=== PATIENT | female | born 1995 | race Caucasian/White ===

== ENCOUNTER 2017-02-21 02:42 | Emergency (ER) | payer BC ==
[2017-02-21] MEDS ORDERED: Morphine INJ* 4 MG/ML 1 ML CARPUJECT IV ONE (03:11)
[2017-02-21] MEDS ORDERED: HYDROmorphone INJ* 2 MG/ML CARPUJECT SYRINGE IV SLOW PU ONE ×2 (05:04→05:54)
--- NOTE | 2017-02-21 08:00 | ED ---
Anali Romero Alfonso, scribed for Dewayne Anaya MD on 02/21/17 at 0308 . Upper Extremity Pain - HPI Summary HPI Summary: This patient is a 22 year old F BIBA to [facility] accompanied by male friend with a chief complaint of right elbow pain since a fall at 0145. She states I fell down 7 stairs. The patient rates the aching pain 8/10 in severity. Symptoms aggravated by movement and palpation. Symptoms alleviated by nothing. Patient reports ETOH use tonight. Patient denies right shoulder pain, RUE numbness, head trauma, and LOC. She is right hand dominant. - History of Current Complaint Chief Complaint: EDExtremityUpper Stated Complaint: RIGHT ARM PAIN Hx Obtained From: Patient Mechanism Of Injury: Fall From Height Of: - 7 stairs Onset/Duration: Started Hours Ago, Traumatic, Still Present Timing: Constant, Lasting Hours Severity Currently: Severe - 8/10 severity Pain Location: Elbow - R Character: Aching Aggravating Factor(s): Movement, Other - Palpation Alleviating Factor(s): Nothing Associated Signs & Symptoms: Positive: Other - Patient denies right shoulder pain, RUE numbness, head trauma, and LOC. Related History: Dominant Hand Right - Allergies/Home Medications Allergies/Adverse Reactions: Allergies Allergy/AdvReac Type Severity Reaction Status Date / Time No Known Allergies Allergy Verified 02/21/17 02:47 PMH/Surg Hx/FS Hx/Imm Hx Sensory History: Denies: Hx Legally Blind Opthamlomology History: Denies: Hx Legally Blind EENT History: Denies: Hx Deafness Infectious Disease History: No Infectious Disease History: Denies: Traveled Outside the [place] in Last 30 Days - Family History Known Family History: Negative: Cardiac Disease - Social History Occupation: Student Alcohol Use: Weekly Hx Substance Use: No Substance Use Type: Reports: None Hx Tobacco Use: No Smoking Status (MU): Never Smoked Tobacco Review of Systems Negative: Fever Positive: Other - right elbow pain; negative right shoulder pain Neurological: Other - Negative RUE numbness, head trauma, and LOC All Other Systems Reviewed And Are Negative: Yes Physical Exam - Summary Physical Exam Summary: Appearance: Well-appearing, Well-nourished Sin: Warm Eyes: Normal ENT: Normal Neck: Supple, nontender Respiratory: Clear to auscultation Cardiovascular: Normal radial pulses bilaterally. Normal capillary refill bilaterally. Abdomen: Soft, nontender Bowel: Present Musculoskeletal: Strength/ROM Intact. No shoulder tenderness. Right elbow gross deformity. Limited ROM at right elbow secondary to pain and likely dislocation. Neurological: A&Ox3, ETOH on breath. Psychiatric: Visibly anxious. Distal neurovascular intact. Triage Information Reviewed: Yes Vital Signs On Initial Exam: Initial Vitals Temp Pulse Resp BP Pulse Ox 99.2 F 76 16 113/63 99 02/21/17 02:42 02/21/17 02:42 02/21/17 02:42 02/21/17 02:42 02/21/17 02:42 Vital Signs Reviewed: Yes Procedures - Splinting Location: R arm posterior mold Hand-Made Type: orthoglass Splint: posterior long arm Pre-Proc Neuro Vasc Exam: normal Post-Proc Neuro Vasc Exam: normal - Joint Reduction Joint Reduction Site: elbow (R) Conscious Sedation: No - ETOH use Reduction Attempts: 3 Pre-Procedure NV Exam: Yes - Intact Post Joint Reduction Film: joint reduced - and distal neurovascular still intact Diagnostics - Vital Signs Vital Signs Temp Pulse Resp BP Pulse Ox 02/21/17 02:42 99.2 F 76 16 113/63 99 - Laboratory Lab Statement: Any lab studies that have been ordered have been reviewed, and results considered in the medical decision making process. - Radiology Elbow X-Ray Radiology Interpretation Completed By: ED Physician - Right elbow dislocation with posterior displacement of the olecranon., Radiologist - Pending official interpretation from radiologist. See meditech. Forearm X-Ray Radiology Interpretation Completed By: ED Physician - Possible lateral radial head fracture. Possible buckle distal radius fracture., Radiologist - Pending official interpretation from radiologist. See meditech. Humerus X-Ray Radiology Interpretation Completed By: ED Physician - No fracture of humerus appreciated, Radiologist - Pending official interpretation from radiologist. See meditech. Elbow X-Ray 2 Radiology Interpretation Completed By: ED Physician - Reduction successful. - CT Upper extremity CT Interpretation Completed By: Radiologist - Pending official interpretation from radiologist. See meditech. C-Spine CT Interpretation Completed By: Radiologist - Pending official interpretation from radiologist. See meditech. Brain CT Interpretation Completed By: Radiologist - Pending official interpretation from radiologist. See meditech. Re-Evaluation - Re-Evaluation First Eval Re-Evaluation Time: 04:53 Comment: Reviewed imaging results, plan, and she understands and agress. Course/Dx - Course Assessment/Plan: reduction performed successfully, reduced on xr and ct, distal nv status intact pre and post reduction. I spoke wtih our orthopedist Dr. Chairez with whom I discussed the case, reduction, and follow up. Pt feels much better after reduction and splinting, instructed to fu with orthopedist within 1 week for reevaluation. Pt agrees to and understnads dc isntructions . CT head and cspine neg. - Diagnoses Provider Diagnoses: Elbow dislocation, Radial head fracture - Physician Notifications Discussed Care of Patient With: Bessie Chairez Time Discussed With Above Provider: 04:40 Instructed by Provider To: Other - Consulted Dr. Chairez (orthopedics) at 0440 who prompt reduction to minimize risk of neurovascular injury. Discharge - Discharge Plan Condition: Improved Disposition: HOME Patient Education Materials: Elbow Fracture (ED), Splint Care (ED) Referrals: [facility] - [place] [Primary Care Provider] - Bessie Chairez MD [Medical Doctor] - Additional Instructions: PLEASE KEEP SPLINT ON CLEAN AND DRY AND COVER WITH PLASTIC BAG DURING SHOWERS PLEASE MAKE AN APPOINTMENT TO SEE AN ORTHOPEDIST WTIHIN 1 WEEK PLEASE RETURN TO THE ER FOR ANY WORSENING OR CONCERNING SYMPTOMS. PLEASE SEEK MEDICAL ATTENTION IMMEDIATELY IF YOU HAVE ANY NUMBNESS OR COLOR CHANGES OF YOUR FINGERS OR IF YOU FEEL PINCHING OR PAIN FROM YOUR SPLINT. The documentation as recorded by the Anali marr Alfonso accurately reflects the service I personally performed and the decisions made by me, Dewayne Anaya MD.
[2017-02-21 08:20] VITALS: BP 127/76
--- NOTE | 2017-02-21 13:07 | RAD ---
INDICATION: Right upper terminate pain after a fall TECHNIQUE: 3 views of the right humerus, 2 views of the right elbow and 2 views of the right forearm were obtained FINDINGS: There is an impacted partially comminuted fracture of the right humeral head. Depicted best on the lateral view of the elbow the olecranon is displaced from the humeral condyles posteriorly and with shortening at the elbow joint. The remaining visualized bones of the right upper extremity are intact. There is a moderate right elbow joint effusion. IMPRESSION: Impacted right radial head fracture with posterior dislocation of the ulnar humeral joint.
--- NOTE | 2017-02-21 13:38 | RAD ---
indication: Fall down stairs with + EtOH. COMPARISON: None A CT scan of the brain and c-spine was performed without intravenous contrast enhancement. Contiguous axial sections were obtained from the lung apices through the vertex. BRAIN: The ventricles, cisterns and sulci are within normal limits. No significant focal abnormality or mass effect is seen. The lang-white differentiation is adequately maintained. There is no evidence for intracranial hemorrhage. No significant bony abnormality is present. The mastoid air cells are appropriately aerated. The visualized paranasal sinuses are clear. C-SPINE: On the sagittal view images there is mild reversal of the normal cervical lordosis. The vertebral bodies and facet joints are otherwise appropriately aligned. The dens is intact. There is no atlantodental interval widening. There is no acute fracture or dislocation identified. The intervertebral disc heights are maintained appropriately. There is no hyperdense material in the cervical canal to indicate hemorrhage. The visualized musculature and soft tissues are normal. There is no gross lymphadenopathy visualized. The visualized portion of the lung apices are clear. IMPRESSION: 1. No calvarial fracture or acute intracranial hemorrhage. 2. No fracture or dislocation of the cervical spine.
--- NOTE | 2017-02-21 13:42 | RAD ---
INDICATION: Right elbow pain after a fall COMPARISON: Same day elbow radiograph acquired at 0425 hours which demonstrates posterior dislocation of the olecranon relative to the humerus. A radiograph acquired at 0547 hours shows interval reduction of the dislocation. TECHNIQUE: Noncontrast CT examination of the right elbow. Axial images were acquired and sagittal and coronal reformats were created and independently analyzed. FINDINGS: Involving the volar radial aspect of the right radial head there is a minimally comminuted fracture. There is a slight degree of impaction of the fracture fragment. The dislocation of the olecranon from the humerus on the previous radiograph has been reduced. There is a small to moderate elbow effusion. Subcutaneous infiltration and thickening is seen overlying the posterior aspect of the humerus most likely contusion in this clinical setting. Remaining visualized bones are intact and appropriately aligned. IMPRESSION: 1. Slightly impacted radial head fracture. 2. There has been interval reduction of the dislocated olecranon process from the humerus since the radiograph acquired at 0425 hours. 3. Small joint effusion and likely subcutaneous ecchymosis.
== END 2017-02-21 08:21 | disposition home or self-care (01) ==
LOC: ED 02:42
DX: S52.121A Displaced fracture of head of right radius, initial encounter for closed fracture (principal); W10.9XXA Fall (on) (from) unspecified stairs and steps, initial encounter; Y92.9 Unspecified place or not applicable; S53.124A Posterior dislocation of right ulnohumeral joint, initial encounter
CPT/HCPCS: 24650; 70450; 72125; 96374; 96375; 96376; 99282; J1170; J2270

== ENCOUNTER 2017-08-26 09:24 | Emergency (ER) | payer BC ==
[2017-08-26 10:45] VITALS: BP 103/71
--- NOTE | 2017-08-26 10:57 | UC ---
Respiratory Complaint HPI - HPI Summary HPI Summary: He shouldn't urgent care today with complaints of 3 weeks of chest ingestion bronchospasm. Today had temperature of 100.5 when she awoke. Patient has history of getting allergy related bronchitis this time year. Patient is been taking Zyrtec-D Tessalon Perles Robitussin and using her albuterol inhaler when necessary to manage the cough without much relief - History of Current Complaint Chief Complaint: UCRespiratory Stated Complaint: COUGH SORE THROAT Time Seen by Provider: 08/26/17 10:50 Hx Obtained From: Patient ?: No Onset/Duration: Gradual Onset, Lasting Weeks - 3 Timing: Constant Severity Initially: Mild Severity Currently: Mild Pain Intensity: 4 Pain Scale Used: 0-10 Numeric Character: Cough: Nonproductive Aggravating Factors: Allergens, Deep Breaths Alleviating Factors: Bronchodilator Associated Signs And Symptoms: Positive: Fever, URI Related History: Seasonal Allergies - Allergies/Home Medications Allergies/Adverse Reactions: Allergies Allergy/AdvReac Type Severity Reaction Status Date / Time No Known Allergies Allergy Verified 08/26/17 10:45 Home Medications: Home Medications LORazepam [Lorazepam] 0.5 mg PO 08/26/17 [History] Norethindrone AC-Eth Estradiol [Junel 1 mg-20 Mcg Tablet] 1 tab PO 08/26/17 [ History] Zolpidem Tartrate [Ambien] 5 mg PO 08/26/17 [History] PMH/Surg Hx/FS Hx/Imm Hx Previously Healthy: No Psychological History: Anxiety, Other Other Psychological History: insomnia - Surgical History Surgical History: None - Family History Known Family History: Positive: None Negative: Cardiac Disease - Social History Occupation: Student Lives: Alone Alcohol Use: Weekly Substance Use Type: None Smoking Status (MU): Never Smoked Tobacco Review of Systems Constitutional: Fever, Fatigue Skin: Negative Eyes: Negative ENT: Sore Throat, Nasal Discharge, Sinus Congestion Respiratory: Cough Cardiovascular: Negative Gastrointestinal: Negative Genitourinary: Negative Motor: Negative Neurovascular: Negative Musculoskeletal: Negative Neurological: Negative Psychological: Negative Is Patient Immunocompromised?: No All Other Systems Reviewed And Are Negative: Yes Physical Exam Triage Information Reviewed: Yes Appearance: No Pain Distress, Well-Nourished, Ill-Appearing Vital Signs: Initial Vital Signs Temp 97.7 F 08/26/17 10:40 Pulse 104 08/26/17 10:40 Resp 18 08/26/17 10:40 BP 103/71 08/26/17 10:40 Pulse Ox 99 08/26/17 10:40 Vital Signs Reviewed: Yes Eye Exam: Normal Eyes: Positive: Conjunctiva Clear ENT Exam: Normal ENT: Positive: Normal ENT inspection, Hearing grossly normal, Pharyngeal erythema, Nasal congestion, Nasal drainage, TMs normal, Uvula midline. Negative : Tonsillar swelling, Tonsillar exudate, Trismus, Muffled voice, Hoarse voice, Dental tenderness, Sinus tenderness Dental Exam: Normal Neck exam: Normal Neck: Positive: Supple, Nontender, No Lymphadenopathy Respiratory Exam: Normal Respiratory: Positive: Chest non-tender, Lungs clear, Normal breath sounds, No respiratory distress, No accessory muscle use Cardiovascular Exam: Normal Cardiovascular: Positive: RRR, No Murmur, Pulses Normal, Brisk Capillary Refill Musculoskeletal Exam: Normal Musculoskeletal: Positive: Strength Intact, ROM Intact, No Edema Neurological Exam: Normal Neurological: Positive: Alert, Muscle Tone Normal Psychological Exam: Normal Skin Exam: Normal UC Diagnostic Evaluation - Laboratory O2 Sat by Pulse Oximetry: 99 Respiratory Course/Dx - Course Course Of Treatment: Patient will continue current treatment add and prednisone for 4 days, if symptoms worsen or fail to resolve then patient may had antibiotic. Follow up with [facility] - Differential Dx/Diagnosis Provider Diagnoses: Bronchospasm, environmental allergies, bronchitis Discharge - Sign-Out/Discharge Documenting (check all that apply): Discharge/Admit/Transfer - Discharge Plan Condition: Stable Disposition: HOME Prescriptions: Azithromycin TAB* [Zithromax TAB (Z-MARISOL) 250 mg #6 tabs] 2 tab PO .TODAY, THEN 1 DAILY #1 marisol predniSONE TAB* [Deltasone TAB*] 40 mg PO DAILY 4 Days #8 tab Patient Education Materials: Acute Bronchitis (ED), Allergies (ED), Bronchospasm (ED) Referrals: Magali Keith DO [Primary Care Provider] - If Needed - Billing Disposition and Condition Condition: STABLE Disposition: HOME
== END 2017-08-26 11:06 | disposition home or self-care (01) ==
LOC: UCEAST 09:24
DX: J20.9 Acute bronchitis, unspecified (principal); J45.909 Unspecified asthma, uncomplicated; F41.9 Anxiety disorder, unspecified; G47.00 Insomnia, unspecified
CPT/HCPCS: 99212; G0463